=== PATIENT | female | born 1975 | race African-American/Black ===

== ENCOUNTER → 2016-04-09 | Outpatient (REF) | payer OTHER | LOC: M SFHCPLAZ 15:30 | DX: E55.9 Vitamin D deficiency, unspecified (principal); I15.9 Secondary hypertension, unspecified; Z53.9 Procedure and treatment not carried out, unspecified reason ==

== ENCOUNTER → 2016-04-28 | Outpatient (CLI) | payer OTHER ==
[2016-04-28 16:55] LABS: ALBUMIN 3.4 GM/DL (3.2-5.2); ALBUMIN/GLOBULIN RATIO 1.06 (1.00-1.93); ALKALINE PHOSPHATASE 95 U/L (45-117); ALT/SGPT 21 U/L (12-78); ANION GAP 4 MEQ/L (8-16); AST/SGOT 15 U/L (15-37); BILIRUBIN,TOTAL 0.2 MG/DL (0.2-1.0); BLOOD UREA NITROGEN 14 MG/DL (7-18); CALCIUM LEVEL 8.5 MG/DL (8.5-10.1); CARBON DIOXIDE LEVEL 33 MEQ/L (21-32); CHLORIDE LEVEL 107 MEQ/L (98-107); CREATININE FOR GFR 0.91 MG/DL (0.55-1.02); GLOMERULAR FILTRATION RATE > 60.0 (>60); GLUCOSE, FASTING 70 MG/DL (70-105); POTASSIUM SERUM 3.9 MEQ/L (3.5-5.1); SODIUM LEVEL 144 MEQ/L (136-145); TOTAL PROTEIN 6.6 GM/DL (6.4-8.2)
== END ==
LOC: M LAB 15:58
PROVIDERS: ATTEND Family Medicine
DX: E55.9 Vitamin D deficiency, unspecified (principal); I15.9 Secondary hypertension, unspecified

== ENCOUNTER → 2016-05-03 | Outpatient (REF) | payer OTHER | LOC: M SFHCPLAZ 08:04 | PROVIDERS: ATTEND Internal Medicine | DX: Z13.21 Encounter for screening for nutritional disorder (principal); Z13.220 Encounter for screening for lipoid disorders; I10 Essential (primary) hypertension ==

== ENCOUNTER → 2016-05-04 | Outpatient (REF) | payer OTHER | LOC: M SFHCWAGY 10:59 | PROVIDERS: ATTEND Nurse Practitioner Women's Health | DX: Z12.4 Encounter for screening for malignant neoplasm of cervix (principal); R87.5 Abnormal microbiological findings in specimens from female genital organs ==

== ENCOUNTER → 2017-06-17 | Outpatient (REF) | payer MEDICAID ==
[2017-06-17 13:52] LABS: ANION GAP 5 MEQ/L (8-16); BLOOD UREA NITROGEN 10 MG/DL (7-18); CALCIUM LEVEL 9.3 MG/DL (8.5-10.1); CARBON DIOXIDE LEVEL 31 MEQ/L (21-32); CHLORIDE LEVEL 103 MEQ/L (98-107); CREATININE FOR GFR 0.81 MG/DL (0.55-1.30); GLOMERULAR FILTRATION RATE > 60.0 (>58); GLUCOSE, FASTING 89 MG/DL (70-100); POTASSIUM SERUM 4.2 MEQ/L (3.5-5.1); SODIUM LEVEL 139 MEQ/L (136-145)
[2017-06-17 13:58] LABS: TOTAL 25(OH) VITAMIN D 14.2 NG/ML (30.0-100.0)
== END ==
LOC: M SFHCPLAZ 11:01
DX: E55.9 Vitamin D deficiency, unspecified (principal); M54.5 Low back pain

== ENCOUNTER → 2017-10-06 | Outpatient (REF) | payer OTHER ==
[2017-10-08 14:16] LABS: HPV HYBRID CAPTURE II Positive (Negative)
== END ==
LOC: M SFHCWAGY 12:14
DX: Z12.4 Encounter for screening for malignant neoplasm of cervix (principal)
CPT/HCPCS: 88142

== ENCOUNTER → 2017-11-10 | Outpatient (REF) | payer OTHER ==
[2017-11-10 13:54] LABS: TOTAL 25(OH) VITAMIN D 45.4 NG/ML (30.0-100.0)
== END ==
LOC: M SFHCPLAZ 09:33
DX: E55.9 Vitamin D deficiency, unspecified (principal)

== ENCOUNTER 2017-11-24 09:16 | Emergency (ER) | payer OTHER ==
[2017-11-24] MEDS: CYCLOBENZAPRINE 10 MG TAB PO (10:28)
[2017-11-24] MEDS: IBUPROFEN 600 MG TAB PO (10:28)
[2017-11-24] MEDS: MORPHINE 10 MG/ML 1ML VIAL (J2270) IM (10:28)
== END 2017-11-24 11:36 | disposition home or self-care (01) ==
LOC: M ED 09:16
DX: M54.41 Lumbago with sciatica, right side (principal); M62.830 Muscle spasm of back; I10 Essential (primary) hypertension; Z79.899 Other long term (current) drug therapy
CPT/HCPCS: J2270

== ENCOUNTER 2018-06-06 19:23 | Emergency (ER) | payer OTHER, SELFPAY ==
[~2018-06-06] VITALS: Ht 175.3 cm; Wt 100.0 kg
[~2018-06-06 19:23] MED LIST: CETI10TA; CHLO125TA; CYCL10TA PO; D3-5CAP; DEBL1TAB; FLUTISP; IBUP-1022 PO; LISI-542; SERT-155
[2018-06-06] MEDS ORDERED: IBUPROFEN 600 MG TAB PO ONE (21:00)
[2018-06-06 21:14] LABS: BASO # 0.1 10^3/uL (0.0-0.2); BASO % 0.8 % (0.0-1.0); EOS # 0.5 10^3/uL (0.0-0.50); EOS % 6.1 % (0.0-3.0); HEMATOCRIT 35.8 % (36.0-47.0); HEMOGLOBIN 11.8 g/dl (12.0-15.5); LYMPH # 3.7 10^3/uL (1.5-4.5); LYMPH % 41.7 % (24.0-44.0); MEAN CORPUSCULAR HEMOGLOBIN 29.1 pg (27.0-33.0); MEAN CORPUSCULAR VOLUME 88.4 fl (80.0-96.0); MONO # 0.7 10^3/uL (0.0-0.8); MONO % 8.4 % (0.0-5.0); NEUTROPHILS # 3.8 10^3/uL (1.8-7.7); NEUTROPHILS % 42.8 % (36.0-66.0); PLATELET COUNT, AUTOMATED 279 10^3/uL (150-450); RED BLOOD COUNT 4.05 10^6/uL (4.00-5.40); WHITE BLOOD COUNT 8.8 10^3/uL (4.0-10.0)
[2018-06-06 21:39] LABS: BLOOD UREA NITROGEN 11 MG/DL (7-18); CALCIUM LEVEL 8.7 MG/DL (8.5-10.1); CARBON DIOXIDE LEVEL 31 MEQ/L (21-32); CHLORIDE LEVEL 103 MEQ/L (98-107); CK-MB VALUE MASS < 1.0 NG/ML (<3.6); CPK CREATINE PHOSPHOKINASE 101 U/L (26-192); GLOMERULAR FILTRATION RATE > 60.0 (>58); GLUCOSE, FASTING 89 MG/DL (70-100); MB/CK RELATIVE INDEX 0.99 (< OR =4); POTASSIUM SERUM 3.4 MEQ/L (3.5-5.1); SODIUM LEVEL 139 MEQ/L (136-145); TROPONIN I < 0.02 NG/ML (< 0.10)
--- NOTE | 2018-06-06 21:48 | ECGEPIP ---
Stationary ECG Study [facility] - ED Test Date: 2018-06-06 Pat Name: BECKY MICHAUD Department: Room: - Gender: F Planner/Scheduler: JE : 1975 Requested By: DARLYN ERAZO Order Number: [id number] Reading MD: Maureen Villatoro Measurements Intervals [place] Rate: 85 P: 57 IN: 167 QRS: 16 QRSD: 90 T: 38 QT: 371 QTc: 442 Interpretive Statements SINUS RHYTHM POSSIBLE LEFT ATRIAL ENLARGEMENT SIMILAR 01/14/15 Electronically Signed On 06-06-2018 21:48:18 EDT by Maureen Villatoro
[2018-06-06 22:15] VITALS: BP 149/98
[2018-06-06] MEDS ORDERED: LISINOPRIL 5 MG TAB PO ONE (22:30)
[2018-06-06] MEDS ORDERED: CHLORTHALIDONE 12.5MG PER 1/2 TABLET PO ONE (22:30)
[2018-06-06 22:39] VITALS: BP 142/97
[2018-06-06] MEDS ORDERED: POTASSIUM CHLORIDE 10 MEQ SR TABLET PO ONE (23:00)
[2018-06-06 23:24] LABS: INFLUENZA A AMPLIFICATION NEGATIVE (NEGATIVE); INFLUENZA B AMPLIFICATION NEGATIVE (NEGATIVE)
[2018-06-06] MEDS ORDERED: IBUP-1022 PO (23:31)
--- NOTE | 2018-06-07 08:02 | REP ---
Portable chest, 08:33 p.m., single AP semi upright view: Comparison is 01/14/2015. The lung hair are clear. The cardiac size is normal. The jorge, mediastinum, and skeletal structures are unremarkable except for thoracic scoliosis, unchanged. Impression: Negative portable chest. Scoliosis, unchanged. Electronically Signed by Pedro Neal MD 06/07/2018 07:54 A
--- NOTE | 2018-06-07 08:29 | REP ---
Right knee five views: Comparison is 12/26/2014. Mineralization is normal. There is joint space narrowing of the medial compartment as an interval change compatible with early osteoarthritic change. The lateral patellofemoral compartments are unremarkable. Mineralization is normal. I suspect there is a small suprapatellar effusion. No fracture or dislocation. Impression: Mild osteoarthritic changes in the medial compartment and small joint effusion. Electronically Signed by Pedro Neal MD 06/07/2018 08:21 A
== END 2018-06-06 23:39 | disposition home or self-care (01) ==
LOC: M ED 19:23
DX: J06.9 Acute upper respiratory infection, unspecified (principal); R07.89 Other chest pain; E87.5 Hyperkalemia; M25.561 Pain in right knee; M41.9 Scoliosis, unspecified; Z79.899 Other long term (current) drug therapy

== ENCOUNTER 2018-09-12 09:05 | Emergency (ER) | payer MEDICAID, OTHER, SELFPAY ==
[~2018-09-12] VITALS: Ht 175.3 cm; Wt 101.8 kg
[2018-09-12] MEDS ORDERED: CHLO125TA PO ×2 (09:35→11:47)
[2018-09-12] MEDS ORDERED: SERT25TA88 PO (09:35)
[2018-09-12] MEDS ORDERED: LISI10TA4 PO ×2 (09:35→11:47)
[2018-09-12 09:40] LABS: BASO # 0.1 10^3/uL (0.0-0.2); BASO % 0.8 % (0.0-1.0); EOS # 0.5 10^3/uL (0.0-0.50); EOS % 5.8 % (0.0-3.0); HEMATOCRIT 34.4 % (36.0-47.0); HEMOGLOBIN 11.3 g/dl (12.0-15.5); LYMPH # 3.6 10^3/uL (1.5-4.5); LYMPH % 46.8 % (24.0-44.0); MEAN CORPUSCULAR HEMOGLOBIN 28.3 pg (27.0-33.0); MEAN CORPUSCULAR HGB CONC 32.8 g/dl (32.0-36.5); MEAN CORPUSCULAR VOLUME 86.2 fl (80.0-96.0); MONO # 0.7 10^3/uL (0.0-0.8); MONO % 8.4 % (0.0-5.0); NEUTROPHILS # 2.9 10^3/uL (1.8-7.7); NEUTROPHILS % 38.1 % (36.0-66.0); PLATELET COUNT, AUTOMATED 234 10^3/uL (150-450); RED BLOOD COUNT 3.99 10^6/uL (4.00-5.40); WHITE BLOOD COUNT 7.7 10^3/uL (4.0-10.0)
[2018-09-12] MEDS ORDERED: CHLORTHALIDONE 25 MG TAB PO ONE (10:00)
[2018-09-12] MEDS ORDERED: LISINOPRIL 20 MG TAB PO ONE (10:00)
[2018-09-12 10:11] LABS: BLOOD UREA NITROGEN 16 MG/DL (7-18); CALCIUM LEVEL 9.3 MG/DL (8.5-10.1); CARBON DIOXIDE LEVEL 28 MEQ/L (21-32); CHLORIDE LEVEL 106 MEQ/L (98-107); CK-MB VALUE MASS < 1.0 NG/ML (<3.6); CPK CREATINE PHOSPHOKINASE 94 U/L (26-192); CREATININE FOR GFR 0.95 MG/DL (0.55-1.30); GLOMERULAR FILTRATION RATE > 60.0 (>58); GLUCOSE, FASTING 101 MG/DL (70-100); MB/CK RELATIVE INDEX 1.06 (< OR =4); POTASSIUM SERUM 3.3 MEQ/L (3.5-5.1); SODIUM LEVEL 140 MEQ/L (136-145); TROPONIN I < 0.02 NG/ML (< 0.10)
[2018-09-12] MEDS ORDERED: POTASSIUM CHLORIDE 10 MEQ SR TABLET PO ONE (11:00)
[2018-09-12] MEDS ORDERED: hydrALAZINE INJ 20 MG/ML VIAL IV ONE (11:15)
[2018-09-12 11:24] VITALS: BP 159/112
[2018-09-12 11:30] VITALS: BP 162/105
[2018-09-12] MEDS ORDERED: LISI-542 PO (11:47)
[2018-09-12] MEDS ORDERED: K-TA10TA2 PO (11:47)
--- NOTE | 2018-09-13 00:15 | ECGEPIP ---
[facility] - ED Test Date: 2018-09-12 Pat Name: BECKY MICHAUD Department: Room: - Gender: Female [employer] Telephone Clerk: Red : 1975 Requested By: Avery Rahman Order Number: [id number] Reading MD: Brady Arndt Measurements Intervals [place] Rate: 85 P: 34 MD: 170 QRS: QRSD: 94 T: 12 QT: 365 QTc: 435 Interpretive Statements SINUS RHYTHM Nonspecific T wave abnormality Electronically Signed on 09-13-2018 0:15:27 EDT by Brady Arndt
== END 2018-09-12 12:15 | disposition home or self-care (01) ==
LOC: M ED 09:05
DX: I10 Essential (primary) hypertension (principal); M41.9 Scoliosis, unspecified; E66.9 Obesity, unspecified; Z68.33 Body mass index [BMI] 33.0-33.9, adult; Z79.899 Other long term (current) drug therapy

== ENCOUNTER → 2018-09-22 | Outpatient (REF) | payer OTHER ==
[~2018-09-22] MED LIST changes: +CHLO125TA PO; +K-TA10TA2 PO; +LISI-542 PO; +LISI10TA4 PO; +SERT25TA88 PO
[2018-09-22 14:41] LABS: HEMOGLOBIN A1c 5.6 %
[2018-09-22 14:50] LABS: BLOOD UREA NITROGEN 13 MG/DL (7-18); CALCIUM LEVEL 8.9 MG/DL (8.5-10.1); CARBON DIOXIDE LEVEL 32 MEQ/L (21-32); CHLORIDE LEVEL 102 MEQ/L (98-107); CHOLESTEROL LEVEL 192 MG/DL (<200); CHOLESTEROL RISK RATIO 5.647 (<5); CREATININE FOR GFR 0.86 MG/DL (0.55-1.30); FERRITIN 26 NG/ML (8-252); FREE T4 1.09 NG/DL (0.76-1.46); GLOMERULAR FILTRATION RATE > 60.0 (>58); GLUCOSE, FASTING 80 MG/DL (70-100); HDL CHOLESTEROL 34 MG/DL (>40); IRON (FE) 30 UG/DL (50-170); LDL CHOLESTEROL 141 MG/DL (<100); NON-HDL-C 158 MG/DL; PERCENT SATURATION 7.4 % (13.2-45.0); POTASSIUM SERUM 3.7 MEQ/L (3.5-5.1); SODIUM LEVEL 140 MEQ/L (136-145); TOTAL IRON BINDING CAPACITY 407 UG/DL (250-450); TRIGLYCERIDES LEVEL 86 MG/DL (<150)
[2018-09-22 14:51] LABS: TOTAL 25(OH) VITAMIN D 19.6 NG/ML (30.0-100.0)
[2018-09-22 14:52] LABS: MALB URINE SIEMENS 36.4 MG/L; MAU/CREAT RATIO 9.8 MCG/MG (0.0-30.0)
== END ==
LOC: M SFHCPLAZ 11:48
PROVIDERS: ATTEND Family Medicine
DX: R53.82 Chronic fatigue, unspecified (principal); I10 Essential (primary) hypertension; Z13.220 Encounter for screening for lipoid disorders; Z13.1 Encounter for screening for diabetes mellitus; D64.9 Anemia, unspecified; E55.9 Vitamin D deficiency, unspecified

== ENCOUNTER → 2018-09-26 | Outpatient (CLI) | payer OTHER ==
--- NOTE | 2018-09-26 15:53 | REPMRS ---
Patient History Baseline Mammogram Family history of prostate cancer at age 50 or over in father. Taking hormonal contraceptives for 1 year. 3D TOMOSYNTHESIS WAS PERFORMED. The [facility] lifetime risk for breast cancer is 7.8%. Digital Woman Screen Mammo: September 26, 2018 - Exam #: [id number] Bilateral CC and MLO view(s) were taken. Technologist: Esme Alvarez, Technologist FINDINGS: The breast tissue is heterogeneously dense. This may lower the sensitivity of mammography. There is no evidence of cancer on this mammogram. Assessment: BI-RADS/ACR category 2 mammogram. Benign Findings. Recommendation Routine screening mammogram of both breasts in 1 year (for women over age 40). This mammogram was interpreted with the aid of an FDA-approved computer-aided dectection system. Electronically Signed By: Pedro Hernandez MD 09/26/18 [id number]
== END ==
LOC: M WHC 13:38
PROVIDERS: ATTEND Nurse Practitioner Women's Health
DX: Z12.31 Encounter for screening mammogram for malignant neoplasm of breast (principal); Z80.42 Family history of malignant neoplasm of prostate; Z92.0 Personal history of contraception

== ENCOUNTER → 2018-09-26 | Outpatient (REF) | payer OTHER ==
[2018-09-30 00:06] LABS: HPV HYBRID CAPTURE II Positive (Negative)
== END ==
LOC: M SFHCWAGY 13:59
PROVIDERS: ATTEND Nurse Practitioner Women's Health
DX: Z12.4 Encounter for screening for malignant neoplasm of cervix (principal)

== ENCOUNTER 2018-11-20 09:03 | Emergency (ER) | payer OTHER ==
[~2018-11-20] VITALS: Ht 177.8 cm; Wt 98.4 kg
[2018-11-20] MEDS ORDERED: LISI40TA PO (09:10)
--- NOTE | 2018-11-20 10:25 | REP ---
CHEST, TWO VIEWS: There is no evidence of acute infiltrate. No pleural effusion is seen. The heart is normal in size. The mediastinal silhouette is unremarkable. The visualized osseous structures are intact. IMPRESSION: No acute pulmonary disease. Electronically Signed by Pedro Hernandez MD 11/20/2018 04:34 P
[2018-11-20 10:28] VITALS: BP 147/110
[2018-11-20] MEDS ORDERED: PROV108A INH (10:42)
[2018-11-20] MEDS ORDERED: TESS100C PO (10:42)
== END 2018-11-20 10:54 | disposition home or self-care (01) ==
LOC: M ED 09:03
DX: J98.01 Acute bronchospasm (principal); J01.90 Acute sinusitis, unspecified; R05 Cough; Z79.899 Other long term (current) drug therapy

== ENCOUNTER → 2020-03-10 | Outpatient (REF) | payer OTHER ==
[~2020-03-10] MED LIST changes: +CYCL-707 PO; -CYCL10TA PO; -LISI-542; -LISI-542 PO; +LISI-898; +LISI-898 PO; +LISI10TA22 PO; -LISI10TA4 PO; +LISI40TA4 PO; +PROV108A INH; -SERT-155; +SERT25TA21 PO; -SERT25TA88 PO; +SERT50TA29; +TESS100C PO
== END ==
LOC: M SFHCPLAZ 15:08
PROVIDERS: ATTEND Family Medicine
DX: I10 Essential (primary) hypertension (principal); F32.9 Major depressive disorder, single episode, unspecified; Z13.220 Encounter for screening for lipoid disorders; Z13.1 Encounter for screening for diabetes mellitus; E55.9 Vitamin D deficiency, unspecified

== ENCOUNTER 2023-06-22 15:41 | Emergency (ER) | payer MEDICAID, OTHER, SELFPAY ==
[~2023-06-22] VITALS: Ht 175.3 cm; Wt 95.8 kg
[2023-06-22 15:41] VITALS: TEMP 98.5; O2SAT 98
[~2023-06-22 15:41] MED LIST changes: +ALBU6.7H6 INH; -K-TA10TA2 PO; -LISI-898; -LISI-898 PO; +LISI5TAB11; +LISI5TAB11 PO; +POTA-165 PO; -PROV108A INH
[2023-06-22] MEDS ORDERED: CLONI1TA PO ×2 (15:58→18:44)
[2023-06-22] MEDS ORDERED: AMLO1TAB25 PO ×2 (15:58→18:44)
[2023-06-22 17:02] LABS: BASO # 0.1 10^3/uL (0.0-0.2); EOS # 0.2 10^3/uL (0.0-0.5); EOS % 3.3 % (0.0-3.0); HEMOGLOBIN 9.8 g/dl (12.0-15.5); LYMPH # 1.9 10^3/uL (1.5-5.0); LYMPH % 27.7 % (24.0-44.0); MEAN CORPUSCULAR HGB CONC 31.6 g/dl (32.0-36.5); MEAN CORPUSCULAR VOLUME 79.1 fl (80.0-96.0); MONO # 0.6 10^3/uL (0.0-0.8); MONO % 9.2 % (2.0-8.0); NEUTROPHILS % 58.4 % (36.0-66.0); PLATELET COUNT, AUTOMATED 358 10^3/uL (150-450); RED BLOOD COUNT 3.92 10^6/uL (4.00-5.40); WHITE BLOOD COUNT 6.9 10^3/uL (4.0-10.0)
[2023-06-22 17:31] LABS: ALBUMIN 3.6 G/DL (3.2-5.2); ALKALINE PHOSPHATASE 105 U/L (46-116); ALT/SGPT 26 U/L (7.0-40); AST/SGOT 18 U/L (<34); BILIRUBIN,DIRECT 0.2 MG/DL (<0.4); BILIRUBIN,TOTAL 0.5 MG/DL (0.3-1.2); BLOOD UREA NITROGEN 9 MG/DL (9-23); CARBON DIOXIDE LEVEL 29 MMOL/L (20-31); CHLORIDE LEVEL 104 MMOL/L (98-107); CREATININE FOR GFR 0.76 MG/DL (0.55-1.30); GLOMERULAR FILTRATION RATE > 60.0 (>58); GLUCOSE, FASTING 84 MG/DL (60-100); POTASSIUM SERUM 3.6 MMOL/L (3.5-5.1); SODIUM LEVEL 138 MMOL/L (136-145); TOTAL PROTEIN 6.8 G/DL (5.7-8.2)
[2023-06-22] MEDS: ACETAMINOPHEN 500 MG TAB PO ONE (18:21)
[2023-06-22 18:54] VITALS: BP 160/100
[2023-06-22] MEDS: cloNIDine 0.1MG TABLET PO ONE (18:54)
[2023-06-22 20:00] VITALS: BP 138/90
== END 2023-06-22 20:02 | disposition home or self-care (01) ==
LOC: M ED 15:41
DX: I10 Essential (primary) hypertension (principal); F10.10 Alcohol abuse, uncomplicated; F19.10 Other psychoactive substance abuse, uncomplicated; Z87.891 Personal history of nicotine dependence; Z79.899 Other long term (current) drug therapy

== ENCOUNTER 2023-12-27 22:34 | Emergency (ER) | payer MEDICAID, SELFPAY ==
[~2023-12-27] VITALS: Ht 177.8 cm; Wt 99.1 kg
[~2023-12-27 22:34] MED LIST changes: +AMLO1TAB25 PO; +CLONI1TA PO
[2023-12-27 22:39] VITALS: TEMP 98.4
[2023-12-27] MEDS ORDERED: HYDR12.55 PO (22:59)
[2023-12-27] MEDS: hydrALAZINE 20MG/ML 1ML VIAL IV STA (23:24)
[2023-12-27] MEDS: ACETAMINOPHEN 325 MG TAB PO ONE (23:38)
[2023-12-28] MEDS: LABETALOL 100MG/20ML VIAL IV STA (00:51)
[2023-12-28] MEDS: KETOROLAC 30 MG/ML 1ML VIAL IV ONE (02:01)
[2023-12-28] MEDS: METOCLOPRAMIDE INJ 10MG/2ML VIAL IV ONE (02:02)
[2023-12-28] MEDS ORDERED: HOME MED LIST COMPLETE! XX SCH (02:10)
[2023-12-28 02:14] LABS: BASO # 0.1 10^3/uL (0.0-0.2); BASO % 1.4 % (0.0-1.0); EOS # 0.6 10^3/uL (0.0-0.5); EOS % 9.1 % (0.0-3.0); HEMATOCRIT 25.7 % (36.0-47.0); HEMOGLOBIN 7.9 g/dl (12.0-15.5); LYMPH # 2.7 10^3/uL (1.5-5.0); LYMPH % 39.3 % (24.0-44.0); MEAN CORPUSCULAR HEMOGLOBIN 23.2 pg (27.0-33.0); MEAN CORPUSCULAR HGB CONC 30.7 g/dl (32.0-36.5); MEAN CORPUSCULAR VOLUME 75.4 fl (80.0-96.0); MONO % 13.9 % (2.0-8.0); NEUTROPHILS # 2.5 10^3/uL (1.5-8.5); NEUTROPHILS % 35.9 % (36.0-66.0); PLATELET COUNT, AUTOMATED 301 10^3/uL (150-450); RED BLOOD COUNT 3.41 10^6/uL (4.00-5.40); WHITE BLOOD COUNT 6.9 10^3/uL (4.0-10.0)
[2023-12-28 02:38] LABS: CPK CREATINE PHOSPHOKINASE 81 U/L (34-145)
[2023-12-28 02:39] LABS: BLOOD UREA NITROGEN 23 MG/DL (9-23); CARBON DIOXIDE LEVEL 27 MMOL/L (20-31); CHLORIDE LEVEL 105 MMOL/L (98-107); CK-MB VALUE MASS < 1.0 NG/ML (<3.6); CREATININE FOR GFR 0.89 MG/DL (0.55-1.30); GLOMERULAR FILTRATION RATE > 60.0 (>58); GLUCOSE, FASTING 96 MG/DL (60-100); MAGNESIUM LEVEL 1.9 MG/DL (1.8-2.4); MB/CK RELATIVE INDEX 1.23 (< OR =4); POTASSIUM SERUM 3.8 MMOL/L (3.5-5.1); SODIUM LEVEL 137 MMOL/L (136-145)
[2023-12-28 02:45] VITALS: BP 156/97; O2SAT 97
[2023-12-28] MEDS ORDERED: AMLO10TA PO (02:51)
== END 2023-12-28 03:01 | disposition home or self-care (01) ==
LOC: M ED 22:34
DX: R51.9 Headache, unspecified (principal); I16.0 Hypertensive urgency; I10 Essential (primary) hypertension; Z79.899 Other long term (current) drug therapy
CPT/HCPCS: 70450; 80048; 82550; 82553; 83735; 84484; 85025; 87486; 87581; 87633; 87798; 93005; 96374; 96375; 99284; J0360; J1885; J1920; J2765